=== PATIENT | female | born 1985 | race Caucasian/White ===

== ENCOUNTER 2019-02-27 08:59 | Emergency (ER) | payer BC ==
[~2019-02-27] VITALS: Ht 157.5 cm; Wt 62.1 kg
[2019-02-27] MEDS ORDERED: HUMALOG100 UNIT/2 SUBQ (09:14)
[2019-02-27] MEDS ORDERED: GLUCOPHAGE1000 MG PO (09:14)
[2019-02-27] MEDS ORDERED: BUSPIRONE HCL10 MG PO (09:15)
[2019-02-27] MEDS ORDERED: PHENTERMINE HCL15 MG PO (09:15)
[2019-02-27] MEDS ORDERED: ZESTRIL40 MG PO (09:15)
[2019-02-27] MEDS ORDERED: ZYRTEC10 MG PO (09:16)
[2019-02-27 09:23] LABS: URINE BILIRUBIN NEGATIVE (Negative); URINE BLOOD NEGATIVE (Negative); URINE CLARITY CLEAR; URINE COLOR YELLOW; URINE GLUCOSE-RANDOM 2+ (Negative); URINE KETONES NEGATIVE (Negative); URINE LEUKOCYTES-REFLEX NEGATIVE (Negative); URINE NITRITE-REFLEX NEGATIVE (Negative); URINE PROTEIN NEGATIVE (Negative); URINE SPECIFIC GRAVITY >= 1.030 (1.005-1.030); URINE UROBILINOGEN 0.2 E.U./dl (0.2-1.0)
[2019-02-27] MEDS ORDERED: FLEXERIL PO (10:07)
[2019-02-27] MEDS ORDERED: NORCO 5-325 TA1 EAC1 PO (10:07)
[2019-02-27 10:19] VITALS: BP 114/74
== END 2019-02-27 10:21 | disposition home or self-care (01) ==
LOC: M.ERS 08:59
PROVIDERS: Family Medicine
DX: R07.81 Pleurodynia (principal); I10 Essential (primary) hypertension; E10.9 Type 1 diabetes mellitus without complications; F17.200 Nicotine dependence, unspecified, uncomplicated; Z91.013 Allergy to seafood